=== PATIENT | female | born 1970 | race Caucasian/White ===

== ENCOUNTER 2020-06-10 12:04 | Outpatient (REF) | payer BC, SELFPAY ==
[2020-06-10 12:48] LABS: COVID-19 Test Negative (Negative)
== END 2020-06-10 12:05 | disposition home or self-care (01) ==
LOC: HO.LAB 12:04
PROVIDERS: Visit Provider Internal Medicine
DX: Z20.828 Contact with and (suspected) exposure to other viral communicable diseases (principal)
CPT/HCPCS: 87635

== ENCOUNTER 2020-06-22 11:38 | Outpatient (REF) | payer BC, SELFPAY ==
[2020-06-22 12:00] LABS: COVID-19 Test Negative (Negative)
== END 2020-06-22 11:39 | disposition home or self-care (01) ==
LOC: HO.LAB 11:38
PROVIDERS: Visit Provider Internal Medicine
DX: Z20.828 Contact with and (suspected) exposure to other viral communicable diseases (principal)
CPT/HCPCS: 87635

== ENCOUNTER 2020-07-06 12:46 | Outpatient (REF) | payer OTHER, SELFPAY ==
[2020-07-06 13:32] LABS: COVID-19 Test Negative (Negative); IDNOW Serial# 55D5AD1C
== END 2020-07-06 12:47 | disposition home or self-care (01) ==
LOC: HO.EMPCOV 12:46
PROVIDERS: PCP Internal Medicine; Visit Provider Internal Medicine
DX: Z20.828 Contact with and (suspected) exposure to other viral communicable diseases (principal)
CPT/HCPCS: 87635; C9803

== ENCOUNTER 2020-08-03 08:19 | Outpatient (REF) | payer OTHER, SELFPAY ==
[2020-08-03 08:51] LABS: COVID-19 Test Negative (Negative)
== END 2020-08-03 08:20 | disposition home or self-care (01) ==
LOC: HO.EMPCOV 08:19
PROVIDERS: PCP Internal Medicine; Visit Provider Internal Medicine
DX: Z20.828 Contact with and (suspected) exposure to other viral communicable diseases (principal)
CPT/HCPCS: 87635; C9803

== ENCOUNTER 2020-08-26 11:39 | Outpatient (REF) | payer BC, SELFPAY ==
[2020-08-26 12:01] LABS: MANUAL DIFF FLAG NO
[2020-08-26 12:16] LABS: Basophils Percent Auto 0.6 % (0-2); Eosinophils Absolute Auto 0.1 X10*3/uL (0.0-0.4); Eosinophils Percent Auto 1.8 % (0-4); Hematocrit 42.8 % (37-47); Hemoglobin 14.2 g/dl (12.0-16.0); Imm Gran Abs Auto 0.01 X10*3/uL (0.00-0.03); Imm Gran Pct Auto 0.1 % (0.0-0.4); Lymphocytes Absolute Auto 1.9 X10*3/uL (1.2-4.9); Lymphocytes Percent Auto 27.7 % (20-40); Mean Corpuscular HGB Conc 33.2 g/dl (31.0-35.0); Mean Corpuscular Hemoglobin 29.9 pg (27.0-33.0); Mean Corpuscular Volume 90.1 fL (80-98); Mean Platelet Volume 11.3 fL (9.4-12.3); Monocytes Absolute Auto 0.6 X10*3/uL (0.1-1.2); Monocytes Percent Auto 9.2 % (2-11); Neutrophils Absolute Auto 4.1 X10*3/uL (2.0-8.3); Neutrophils Percent Auto 60.6 % (45-73); Platelet Count 266 X10*3/uL (160-400); Red Blood Count 4.75 X10*6/uL (4.20-5.50); Red Cell Distribution Width 12.2 % (11.0-16.0); White Blood Count 6.7 X10*3/uL (4.8-10.8)
== END 2020-08-26 11:40 | disposition home or self-care (01) ==
LOC: HO.LAB 11:39
PROVIDERS: PCP Internal Medicine; Visit Provider Physician Assistant Medical
DX: R06.02 Shortness of breath (principal); R11.0 Nausea; R42 Dizziness and giddiness; R43.0 Anosmia; R53.83 Other fatigue
CPT/HCPCS: 36415; 85025

== ENCOUNTER → 2020-09-08 13:45 | Outpatient (REF) | payer BC, SELFPAY ==
--- NOTE | 2020-09-08 14:00 | CA_ITS ---
Transthoracic Echocardiogram Patient (Last, First, Middle): Maddison Jiménez, Gender: Female Date of : 1970 Age: 50 Procedure Date: 09/08/2020 Procedure Type: Transthoracic Echocardiogram Location: OP Height: 160.02 cm Weight: 63.5 kg BSA: 1.66 m2 Heart Rate: bpm BP: 120 / 80 mmHg Internet Marketing Analyst: MACIE Referring MD: Charles Barragan MD Symptoms: R00.2 PALPITATIONS SOB R06.02 Study Quality: Good ECG Rhythm: Sinus Conclusions: - The left ventricular systolic function is normal. The visually estimated ejection fraction is between 60-65%. - No obvious valvular pathology seen on this study. Findings Left Ventricle Normal left ventricular cavity size. There is normal left ventricular wall thickness. The left ventricular systolic function is normal. The visually estimated ejection fraction is between 60-65%. There is no evidence of regional wall motion abnormalities. Diastolic function is normal for age. Right Ventricle Normal right ventricular cavity size and systolic function. Atria Both atria are normal in size. Aortic Valve The aortic valve was not well visualized. There is a normal trileaflet aortic valve. There is no aortic valve stenosis. There is no aortic valve regurgitation. Mitral Valve The mitral valve appears normal. There is trace mitral valve regurgitation. There is no mitral valve stenosis. Pulmonic Valve The pulmonic valve was not well visualized. Tricuspid Valve Normal tricuspid valve structure. There is trace tricuspid valve regurgitation. The pulmonary artery systolic pressure is normal. Great Vessels The aortic annulus, sinuses of valsalva, and asc aorta are normal in size. Venous The inferior vena cava is normal in size and collapses greater than 50% with inspiration. Pericardium/Pleural There is no evidence of pericardial effusion. Prior Study Comparison No prior study available for comparison. Recommendations, Care & Conclusions No obvious valvular pathology seen on this study. Measurements 2D Linear Measurements IVSd: 0.93 0.6-0.9/0.6-1.0 cm LVIDd: 4.00 3.9-5.3/4.2-5.9 cm LVIDd Index: 2.41 2.4-3.2/2.2-3.1 cm/m2 LVIDs: 2.75 2.0-3.6 cm LVPWd: 0.92 0.7-1.1 cm Ao Root: 2.50 2.1-3.5 cm LA Diam: 2.60 2.7-3.8/3.0-4.0 cm LAIDs Index: 1.57 1.5-2.3 cm/m2 LV Mass: 142.08 67-162/88-224 g LV Mass Index: 85.59 43-95/49-115 g/m2 LVOT Diam: 1.90 3.0+(-)1.3 cm 2D Systolic Function EF 4C: 56.90 >55% EF 2C: 58.10 >55% EF BiP: 57.60 >55% Mitral Valve MV Pk E: 0.70 MV PK A: 0.76 MV Decel Time: 169.00 E/A: 0.90 E'Lateral: 10.90 E'Medial: 8.51 E/E' Med: 8.20 E/E' Lat: 6.40 PHT: 50.00 MVA PHT: 4.40 Decel Harding: 4.13 Aortic Valve AoV Pk Pasha: 1.25 AoV Pk Grad: 6.00 LVOT LVOT Pk Pasha: 1.01 LVOT Mn Pasha: 0.66 LVOT VTI: 0.19 LVOT Pk Grad: 4.00 LVOT Mn Grad: 2.00 LVOT Diam: 1.90 LVOT Area: 2.84 Diastolic Function MV Pk E: 0.70 MV Pk A: 0.76 E/A: 0.90 E'Medial: 8.51 E/E' Med: 8.20 E' Laterial: 10.90 E/E' Lat: 6.40 Tricuspid Valve TR Pk Pasha: 1.83 TR Pk Grad: 13.00 RA Press: 3.00 RVSP: 16.00 Great Vessels Aorta Ao Root-2D: 2.50 2.0-3.7 cm Ao Asc: 2.50 2.1-3.4 cm Updated in Other Vendor System with Status of Final Stephen Navarro MD electronically signed on 09/11/2020 12:28:51 PM with status of Final
== END ==
LOC: HO.CARD 13:45
PROVIDERS: Visit Provider Internal Medicine
DX: R00.2 Palpitations (principal); R06.02 Shortness of breath
CPT/HCPCS: 93306

== ENCOUNTER 2020-09-20 07:18 | Outpatient (REF) | payer BC, SELFPAY ==
--- NOTE | 2020-09-20 07:21 | CT_ITS ---
EXAMINATION: CT SINUS WITHOUT CONTRAST CLINICAL INFORMATION: Sinonasal polyps COMPARISON: None TECHNIQUE: Axial 2 mm thin and reformatted 2 mm thin sagittal and coronal images of sinuses were obtained. This CT examination was performed using dose optimization techniques as appropriate, variously including the following: *Automated exposure control *Adjustment of mA and/or kV according to patient size (this includes techniques or standardized protocols for targeted exams where dose is matched to indication/reason for exam; i.e. extremities or head) *Use of iterative reconstruction technique DLP: 86 mGy-cm FINDINGS: FRONTAL SINUSES AND DRAINAGE PATHWAYS: Normal. MAXILLARY SINUSES AND DRAINAGE PATHWAYS: Normal. The infundibula are patent. ETHMOID SINUSES: Normal. The ethmoid roofs are symmetric, with olfactory fossa depth of 0.6 cm on the right and 0.5 on the left. SPHENOID SINUSES AND DRAINAGE PATHWAYS: Normal. The sphenoid ostia are patent. The carotid canals are covered by bone. NASAL CAVITY/NASOPHARYNX: The nasal cavity is clear. There is moderate right nasal septal deviation/spurring. The nasopharynx is symmetric. ADDITIONAL RELEVANT FINDINGS: No periapical disease is seen. The TMJs articulate normally. The orbits and skull base soft tissues are unremarkable. The middle ear cavities and mastoid air cells are clear. Limited evaluation demonstrates no acute intracranial findings. CT/CT sinus wo con IMPRESSION: There is moderate deviation of nasal septum to the right with a bony nasal spur. No polyps are seen. The sinuses are clear with normal drainage pathways. No polyps or mass seen.
== END 2020-09-20 07:19 | disposition home or self-care (01) ==
LOC: HO.CT 07:18
PROVIDERS: Visit Provider Otolaryngology
DX: J33.0 Polyp of nasal cavity (principal); R43.0 Anosmia
CPT/HCPCS: 70486

== ENCOUNTER 2020-10-08 14:23 | Outpatient (REF) | payer BC, SELFPAY ==
--- NOTE | ~2020-10-08 | XR_ITS ---
EXAMINATION: XR CHEST CLINICAL INFORMATION: Shortness of breath COMPARISON: 12/05/2019 TECHNIQUE: 2 views of the chest were obtained. FINDINGS: Lungs are clear. No focal consolidation or mass. Normal pulmonary vascularity. No pleural effusion or pneumothorax. Normal heart size. No acute osseous abnormality. XR/XR chest 2V IMPRESSION: No acute pulmonary disease.
[2020-10-08 15:45] LABS: D Dimer 258 NG/ML
[2020-10-08 16:04] LABS: B Type Natriuretic Peptide 11 pg/mL (<100)
[2020-10-08 16:05] LABS: Alanine Aminotransferase 71 U/L (0-31); Albumin Level 4.3 g/dL (3.5-5.0); Alkaline Phosphatase 75 U/L (39-117); Aspartate Amino Transferase 51 U/L (5-31); Bilirubin Total 0.4 mg/dL (0.0-1.0); Blood Urea Nitrogen 18 mg/dL (9-16); C Reactive Protein 0.13 mg/dL (< or = 0.50); Calcium 8.9 mg/dL (8.4-10.2); Estimated Glomerular Filt Rate > 60; Glucose Random 98 mg/dL (60-115); Rheumatoid Factor < 15.0 IU/mL (<15.0); Total Protein 6.6 g/dL (6.5-8.0)
[2020-10-08 16:18] LABS: Anion Gap 14 (12-20); Carbon Dioxide 27 mmol/L (22-29); Chloride 102 mmol/L (96-108); Potassium 4.1 mmol/L (3.3-5.1); Sodium 139 mmol/L (135-145)
[2020-10-08 16:23] LABS: Free T4 (Free Thyroxine) 0.92 ng/dL (0.71-1.85); Thyroid Stimulating Hormone 0.63 uIU/mL (0.32-4.0)
[2020-10-08 16:26] LABS: Vitamin B12 561 pg/mL (200-900)
[2020-10-08 16:28] LABS: Erythrocyte Sedimentation Rate 7 MM/HR (0-20)
[2020-10-09 08:16] LABS: Lyme Abs Screen <0.90 index
[2020-10-11 09:26] LABS: Anti Nuclear Antibody Screen NEGATIVE (NEGATIVE)
== END 2020-10-08 14:24 | disposition home or self-care (01) ==
LOC: HO.LAB 14:23
PROVIDERS: PCP Internal Medicine; Visit Provider Physician Assistant Medical
DX: R06.02 Shortness of breath (principal); R11.0 Nausea; R42 Dizziness and giddiness; R43.0 Anosmia; R43.9 Unspecified disturbances of smell and taste; R51.9 Headache, unspecified; R53.83 Other fatigue
CPT/HCPCS: 36415; 71046; 80053; 82607; 83880; 84439; 84443; 85379; 85652; 86038; 86039; 86140; 86431; 86618

== ENCOUNTER 2020-10-18 13:28 | Outpatient (REF) | payer BC, SELFPAY ==
--- NOTE | ~2020-10-18 | MR_ITS ---
EXAMINATION: MR BRAIN WITHOUT CONTRAST CLINICAL INFORMATION: Chronic daily headaches right-sided. COMPARISON: None TECHNIQUE: Multi projectional and multi sequential images of brain were obtained. FINDINGS: There is no restricted diffusion to suspect any acute ischemia. On gradient-echo sequences, there is no flow void signal abnormality to suspect new or old hemorrhagic products. There are 2 punctate signal abnormalities in the deep white matter of right frontal lobe on axial image 13/6 without any significant edema or mass effect. These are nonspecific. No additional abnormality seen. No intra-axial or extra-axial bleed seen. The lateral ventricles are symmetrical in size and configuration without enlargement. The cervical-medullary junction is unremarkable. Normal flow void signal seen in the major cerebral vasculature. There is a punctate T2 signal abnormality in left anterior ethmoid sinus likely focal inflammatory process. Rest of the paranasal sinuses and left mastoid air cells are well-aerated. There is T2 signal abnormality right mastoid sinus. MR/MR head/brain wo con IMPRESSION: No acute intracranial process seen. Two punctate T2 hyperintense foci in deep white matter of right frontal lobe without edema or mass effect, nonspecific. Suspect chronic right mastoid sinus inflammatory changes and focal inflammatory process left anterior ethmoid cell.
== END 2020-10-18 13:29 | disposition home or self-care (01) ==
LOC: HO.MRI 13:28
PROVIDERS: Visit Provider Internal Medicine
DX: G44.52 New daily persistent headache (NDPH) (principal); H53.71 Glare sensitivity; H93.299 Other abnormal auditory perceptions, unspecified ear
CPT/HCPCS: 70551

== ENCOUNTER → 2020-12-09 10:45 | Outpatient (REF) | payer BC, SELFPAY ==
--- NOTE | 2020-12-09 11:00 | CA_ITS ---
Acquisition Time: 2020-12-09 11:13:33 Total Exercise Time: 00:06:36 Test Indications: SOB, CP Medications: SEE CHART Protocol: MAHESH Max HR: 162 BPM 95% of Pred: 169 BPM Max BP: 150/080 mmHG Max Work Load: 7.9 METS Exercise stress test using Mahesh protocol, total of 6 min 36 sec. METS 7.90 and TAPHR up to 95%. Pt tolerated well, c/o chest pressure/thightness with inspiration 6/10 that resolves in recovery. EKG with occasional PVC's, no ischemic changes seen during exercise or in recovery. ECHO images taken at rest and immediately after peak exercise HR achieved. Definity contrast used. Normotensive response to exercise. Test reviewed with Dr. Alvares. Exercise stress echocardiogram was reviewed. At rest, there is normal LVEF and wall motion. With peak exercise, the basal inferior wall is not well visualized but other areas appear to augment normally. There is normal decrease in end-systolic volume. Overall, apart from the above limitation in basal inferior wall, otherwise normal study. Referred By: Charles Barragan Overread By: HAILEE ALVARES
== END ==
LOC: HO.CARD 10:45
PROVIDERS: Visit Provider Internal Medicine
DX: R07.9 Chest pain, unspecified (principal)
CPT/HCPCS: 93350; Q9957

== ENCOUNTER 2021-04-12 14:07 | Outpatient (REF) | payer BC, SELFPAY ==
--- NOTE | ~2021-04-12 | XR_ITS ---
EXAMINATION: XR HAND, RIGHT CLINICAL INFORMATION: Right hand pain. COMPARISON: None TECHNIQUE: PA, lateral, and oblique views of the right hand. FINDINGS: The bones and soft tissues are normal. No fracture. Alignment is anatomic. Joint spaces are maintained. No erosions or soft tissue calcifications. XR/XR hand RT min 3V IMPRESSION: Unremarkable right hand.
--- NOTE | ~2021-04-12 | XR_ITS ---
EXAMINATION: XR HAND, LEFT CLINICAL INFORMATION: Left hand pain. COMPARISON: None TECHNIQUE: PA, lateral, and oblique views of the left hand. FINDINGS: The bones and soft tissues are normal. No fracture. Alignment is anatomic. Joint spaces are maintained. No erosions or soft tissue calcifications. XR/XR hand LT min 3V IMPRESSION: Unremarkable left hand.
--- NOTE | ~2021-04-12 | XR_ITS ---
EXAMINATION: XR FOOT, RIGHT CLINICAL INFORMATION: Right foot pain. COMPARISON: None TECHNIQUE: AP, lateral, and oblique views of the right foot. FINDINGS: The bones and soft tissues are normal. No fracture. Alignment is anatomic. Joint spaces are maintained. XR/XR foot RT 2V IMPRESSION: Normal right foot.
--- NOTE | ~2021-04-12 | XR_ITS ---
EXAMINATION: XR FOOT, LEFT CLINICAL INFORMATION: Left foot pain. COMPARISON: None TECHNIQUE: AP, lateral, and oblique views of the left foot. FINDINGS: There is no acute fracture or dislocation. The tarsal bones are normally aligned. There is a small retrocalcaneal spur. The soft tissues are unremarkable. XR/XR foot LT 2V IMPRESSION: Small retrocalcaneal spur without other significant abnormality.
[2021-04-12 15:22] LABS: MANUAL DIFF FLAG NO
[2021-04-12 15:30] LABS: Basophils Percent Auto 0.7 % (0-2); Eosinophils Absolute Auto 0.2 X10*3/uL (0.0-0.4); Eosinophils Percent Auto 2.5 % (0-4); Hematocrit 42.3 % (37-47); Hemoglobin 13.9 g/dl (12.0-16.0); Imm Gran Abs Auto 0.01 X10*3/uL (0.00-0.03); Imm Gran Pct Auto 0.2 % (0.0-0.4); Lymphocytes Percent Auto 33.6 % (20-40); Mean Corpuscular HGB Conc 32.9 g/dl (31.0-35.0); Mean Corpuscular Hemoglobin 29.8 pg (27.0-33.0); Mean Corpuscular Volume 90.6 fL (80-98); Mean Platelet Volume 10.9 fL (9.4-12.3); Monocytes Absolute Auto 0.5 X10*3/uL (0.1-1.2); Monocytes Percent Auto 8.7 % (2-11); Neutrophils Absolute Auto 3.3 X10*3/uL (2.0-8.3); Neutrophils Percent Auto 54.3 % (45-73); Platelet Count 307 X10*3/uL (160-400); Red Blood Count 4.67 X10*6/uL (4.20-5.50); Red Cell Distribution Width 12.4 % (11.0-16.0); White Blood Count 6.1 X10*3/uL (4.8-10.8)
[2021-04-12 15:50] LABS: Alanine Aminotransferase 31 U/L (0-31); Albumin Level 4.8 g/dL (3.5-5.0); Alkaline Phosphatase 78 U/L (39-117); Anion Gap 15 (12-20); Aspartate Amino Transferase 27 U/L (5-31); Bilirubin Total 0.6 mg/dL (0.0-1.0); Blood Urea Nitrogen 14 mg/dL (9-16); C Reactive Protein 0.19 mg/dL (< or = 0.50); Carbon Dioxide 30 mmol/L (22-29); Chloride 101 mmol/L (96-108); Estimated Glomerular Filt Rate > 60; Glucose Random 88 mg/dL (60-115); Potassium 4.7 mmol/L (3.3-5.1); Rheumatoid Factor < 15.0 IU/mL (<15.0); Sodium 141 mmol/L (135-145); Total Protein 7.6 g/dL (6.5-8.0)
[2021-04-12 16:18] LABS: Erythrocyte Sedimentation Rate 7 MM/HR (0-20)
[2021-04-13 21:16] LABS: Lyme Abs Screen <0.90 index
[2021-04-14 15:57] LABS: Cyclic Citrullinated Peptide <16 UNITS
== END 2021-04-12 14:08 | disposition home or self-care (01) ==
LOC: HO.XRAY 14:07
PROVIDERS: PCP Internal Medicine; Visit Provider Student in an Organized Health Care Education/Training Program
DX: M79.642 Pain in left hand (principal); M79.641 Pain in right hand; M79.672 Pain in left foot; M79.671 Pain in right foot; M25.562 Pain in left knee; M25.561 Pain in right knee
CPT/HCPCS: 36415; 73130; 73620; 80053; 85025; 85652; 86140; 86200; 86431; 86617; 86618

== ENCOUNTER → 2021-04-27 09:12 | Outpatient (BNVA) | payer BC, SELFPAY | PROVIDERS: PCP Internal Medicine; Visit Provider Student in an Organized Health Care Education/Training Program ==

== ENCOUNTER 2021-04-29 06:36 | Outpatient (REF) | payer BC, SELFPAY ==
--- NOTE | ~2021-04-29 | XR_ITS ---
EXAMINATION: XR KNEE, RIGHT CLINICAL INFORMATION: Pain in right knee COMPARISON: None TECHNIQUE: Three views of the right knee. FINDINGS: No fracture. No dislocation. No joint effusion. Normal mineralization. Joint spaces are maintained. XR/XR knee RT 3V IMPRESSION: No acute osseous abnormality of the right knee.
== END 2021-04-29 06:37 | disposition home or self-care (01) ==
LOC: HO.XRAY 06:36
PROVIDERS: PCP Internal Medicine; Visit Provider Physician Assistant Medical
DX: M25.561 Pain in right knee (principal)
CPT/HCPCS: 73562

== ENCOUNTER 2021-05-11 09:46 | Outpatient (REF) | payer BC, SELFPAY ==
[2021-05-14 03:56] LABS: HPV mRNA E6/E7 rflx Not Detected (Not Detected)
== END 2021-05-11 09:47 | disposition home or self-care (01) ==
LOC: HO.LAB 09:46
PROVIDERS: PCP Internal Medicine; Visit Provider Advanced Practice Midwife
DX: Z01.419 Encounter for gynecological examination (general) (routine) without abnormal findings (principal); Z11.51 Encounter for screening for human papillomavirus (HPV); N95.1 Menopausal and female climacteric states
CPT/HCPCS: 87624; 88142

== ENCOUNTER 2021-06-25 10:16 | Outpatient (REF) | payer BC, SELFPAY ==
[2021-06-25 10:45] LABS: COVID-19 Test Negative (Negative); IDNOW Serial# 9DD0AD1C
== END 2021-06-25 10:17 | disposition home or self-care (01) ==
LOC: HO.LAB 10:16
PROVIDERS: PCP Internal Medicine; Visit Provider Internal Medicine
DX: Z20.822 Contact with and (suspected) exposure to COVID-19 (principal)
CPT/HCPCS: 36415; 87635

== ENCOUNTER 2021-07-06 09:38 | Outpatient (REF) | payer BC, SELFPAY ==
--- NOTE | ~2021-07-06 | MM_ITS ---
EXAMINATION: MM SCREENING DIGITAL BREAST TOMOSYNTHESIS, BILATERAL CLINICAL INFORMATION: Screening. Asymptomatic. No prior breast imaging. Age 51. No known family history breast cancer. The lifetime risk of breast cancer based on the Tyrer-Cuzick Model is 8%. COMPARISON: None (current study represents initial baseline exam). TECHNIQUE: Digital breast tomosynthesis is performed in both the craniocaudal and mediolateral oblique views along with computer-aided detection (CAD). Synthesized 2D images are generated from the tomosynthesis. FINDINGS: There are scattered areas of fibroglandular density (ACR BI-RADS breast composition Category b). There are no significant masses, abnormal calcifications, or other abnormalities. The axilla and skin contours are unremarkable. MM/MM tomosynthesis screening BI IMPRESSION: No mammographic evidence of malignancy. ASSESSMENT: BI-RADS 1: Negative RECOMMENDATION: Routine annual mammography screening. This patient's information was entered into a reminder system with a target due date for their next mammogram.
== END 2021-07-06 09:39 | disposition home or self-care (01) ==
LOC: HO.MAMMO 09:38
PROVIDERS: PCP Internal Medicine; Visit Provider Advanced Practice Midwife
DX: Z12.31 Encounter for screening mammogram for malignant neoplasm of breast (principal)
CPT/HCPCS: 77063; 77067

== ENCOUNTER 2022-01-27 15:24 | Outpatient (REF) | payer BC, SELFPAY ==
--- NOTE | ~2022-01-27 | XR_ITS ---
EXAMINATION: XR KNEE, RIGHT CLINICAL INFORMATION: Pain. COMPARISON: None TECHNIQUE: Four views of the right knee. FINDINGS: Bones and soft tissues are normal. No fracture or joint effusion. Alignment is anatomic. Joint spaces are well maintained. No abnormal soft tissue calcification. XR/XR knee RT 4V IMPRESSION: Unremarkable right knee.
== END 2022-01-27 15:25 | disposition home or self-care (01) ==
LOC: HO.XRAY 15:24
PROVIDERS: PCP Physician Assistant Medical; Visit Provider Physician Assistant Medical
DX: M25.561 Pain in right knee (principal)
CPT/HCPCS: 73564

== ENCOUNTER 2022-06-20 15:31 | Outpatient (REF) | payer BC, SELFPAY ==
--- NOTE | ~2022-06-20 | US_ITS ---
EXAMINATION: ULTRASOUND EXTREMITY NONVASCULAR LIMITED CLINICAL INFORMATION: Pain and swelling post arterial catheterization left arm COMPARISON: None TECHNIQUE: Grayscale and color imaging of the soft tissues of the left forearm and radial artery and vein FINDINGS: No abnormal fluid collection or soft tissue to suggest hematoma is seen. The radial artery is normal in caliber and patent. No pseudoaneurysm or AV fistula is seen. The cephalic vein in the forearm is patent. US/US extremity nonvascular oliva IMPRESSION: Unremarkable exam.
== END 2022-06-20 15:32 | disposition home or self-care (01) ==
LOC: HO.US 15:31
PROVIDERS: Visit Provider Emergency Medicine
DX: R60.0 Localized edema (principal); M79.632 Pain in left forearm; Z98.890 Other specified postprocedural states
CPT/HCPCS: 76882

== ENCOUNTER 2022-08-06 09:44 | Outpatient (REF) | payer BC, SELFPAY ==
[2022-08-06 10:31] LABS: Influenza A PCR NEGATIVE (Negative); Influenza B PCR NEGATIVE (Negative); Resp Syncy Virus RNA Qual PCR NEGATIVE (Negative); SARS COV2 PCR INHOUSE NEGATIVE (Negative)
== END 2022-08-06 09:45 | disposition home or self-care (01) ==
LOC: HO.LAB 09:44
PROVIDERS: Visit Provider Internal Medicine
DX: Z20.822 Contact with and (suspected) exposure to COVID-19 (principal)
CPT/HCPCS: 0241U

== ENCOUNTER → 2022-10-05 08:15 | Outpatient (BNVA) | payer BC, SELFPAY | PROVIDERS: PCP Physician Assistant Medical; Visit Provider Advanced Practice Midwife | DX: Z13.89 Encounter for screening for other disorder (principal) ==

== ENCOUNTER 2024-03-31 16:06 | Outpatient (REF) | payer BC, SELFPAY ==
[2024-04-01 17:39] LABS: Lyme Abs Screen <0.90 index
== END 2024-03-31 16:07 | disposition home or self-care (01) ==
LOC: HO.LAB 16:06
PROVIDERS: PCP Internal Medicine; Visit Provider Hospitalist
DX: T14.8XXA Other injury of unspecified body region, initial encounter (principal); W57.XXXA Bitten or stung by nonvenomous insect and other nonvenomous arthropods, initial encounter
CPT/HCPCS: 36415; 86617; 86618

== ENCOUNTER 2024-08-15 15:27 | Outpatient (REF) | payer BC, SELFPAY ==
--- NOTE | ~2024-08-15 | XR_ITS ---
CLINICAL HISTORY: K59.00 - Constipation, unspecified Single view of the abdomen. COMPARISON: None FINDINGS: Normal bowel distention. No abnormal calcifications. No pneumoperitoneum identified. Ytfkxcgc-gf-rtqum colonic stool burden. No fracture identified. Mild spondylosis. Cholecystectomy clips. IMPRESSION: 1. Nonspecific nonobstructive bowel gas pattern. 2. Elnbzivb-qx-unoay colonic stool burden. This document has been electronically signed by: Freddy Clarke MD on 08/18/2024 14:52:40
--- OUTSIDE RECORDS SUMMARY | 2024-08-15 15:29 | XMS_ITS ---
Author Organization [facility] Address [address] [place] [address] Care Team Providers Care Net Developer Programmer Name Role Phone HARRISON GUERIN Unavailable [phone] MISSY LEONE Unavailable [phone] REASON FOR VISIT pt is here for tirzepatide 2.5mg..pt signed consent and left the office in stable condition MEDICATIONS Medication SIG (Take, Route, Frequency, Duration) Notes Start Date End Date Status Tirzepatide 2.5mg Active Ondansetron HCl 4 MG 1 tablet Orally Onc e a day for 30 days as needed 07/07/2023 Not-Taking Encounters Encounter Location Date Provider Diagnosis [facility] [address] [place] [address] 05/27/2024 MISSY LEONE PLAN OF TREATMENT Next Appt Details Provider Name:MIKE KEY, Main 09/29/2024 11:00:00 AM, [address] [place], [address], MEDICATIONS ADMINISTERED Medication Instructions Date of Administration Dosage Notes Tirzepatide 05/27/2024 2.5 mg Progress Notes * Mary SILVERIOOB:1970 (54 yo F)Acc No.[id number]:05/27/2024 Patient:??Maddison SILVERIO Provider:??Missy Leone MD :1970?Age:54 Y?Sex:Fe male Date:05/27/2024 Address:[address] [place] [address] Subjective: * Chief Complaints: * ?1. Pt is here for tirz epatide 2.5mg..pt signed consent and left the office in stable condition. * Medical History:?? * Medications:??Taking Tirzepa tide , Notes to Pharmacist: 2.5mg, Not-Taking Ondansetron HCl 4 MG Tablet 1 tablet Orally Once a day , Notes to Pharmacist: as needed Objective: Assessment: Plan: * Treatment: * Therapeutic Injections:? Tirzepatide : 2.5 mg (Route: Subcutaneous) given by Curt Rice on subcutaneus * Images: Billing Information: * Visit Code:?? * Procedure Codes:?? * Sign off status: Pending * Provider:??Missy Leone MD Date:??05/27
--- OUTSIDE RECORDS SUMMARY | 2024-08-15 15:29 | XMS_ITS ---
Author Organization [facility] Address [address] [place] [address] Care Team Providers Care Hand Bootmaker Name Role Phone HARRISON GUERIN Unavailable [phone] MISSY LEONE Unavailable [phone] REASON FOR VISIT pt is here for tirzepatide 2.5mg...pt signed consent and left the office in stable condition MEDICATIONS Medication SIG (Take, Route, Frequency, Duration) Notes Start Date End Date Status Ondansetron HCl 4 MG 1 tablet Orally Onc e a day for 30 days as needed 07/07/2023 Not-Taking Tirzepatide 2.5mg Active Encounters Encounter Location Date Provider Diagnosis [facility] [address] [place] [address] 06/17/2024 MISSY LEONE PLAN OF TREATMENT Next Appt Details Provider Name:MIKE KEY, Main 09/29/2024 11:00:00 AM, [address] [facility], [place], [address], MEDICATIONS ADMINISTERED Medication Instructions Date of Administration Dosage Notes Tirzepatide 06/17/2024 2.5 mg Progress Notes * Mary SILVERIOOB:1970 (54 yo F)Acc No.[id number]:06/17/2024 Patient:??Maddison SILVERIO Provider:??Missy Leone MD :1970?Age:54 Y?Sex:Fe male Date:06/17/2024 Address:[address] [place] [address] Subjective: * Chief Complaints: * ?1. Pt is here for tirz epatide 2.5mg...pt signed consent and left the office in [...] off status: Pending * Provider:??Missy Leone MD Date:??06/17
--- OUTSIDE RECORDS SUMMARY | 2024-08-15 15:29 | XMS_ITS | Patient Health Record ---
Author Organization [facility] Address [address] [place] [address] Care Team Providers Care [facility] Department Supervisor Name Role Phone ROBERTO KEERTHIHARRISON Unavailable [phone] EMILY JORGE Unavailable [phone] DON LEONE Unavailable [phone] RAAD CHARLEY Unavailable [phone] MIKE KEY Unavailable [phone] ALLERGIES No Known Allergies REASON FOR REFERRAL No Information MEDICATIONS Medication SIG (Take, Route, Frequency, Duration) Notes Start Date End Date Status Ondansetron HCl 4 MG 1 tablet Orally Onc e a day for 30 days as needed 07/07/2023 Not-Taking PROBLEMS Problem Type ICD Code Onset Dates Problem Status W/U Status Risk SNOMED Code Notes Problem Obesity (BMI 30-39.9) (E66.9) Active confirmed Obesity (603728023) Problem BMI 27.0-27.9,adul t (Z68.27) Active confirmed BMI 25-29 - overweight (396255699) Problem BMI 26.0-26.9,adul t (Z68.26) Active confirmed Body mass index 25-29 - overweight (473639793) Problem Hypertension, essential (I10) Active confirmed Essential hypertension (80265539) VITAL SIGNS Heart Rate 75 /min 06/23/2024 Oximetry 99 % 06/23/2024 Blood pressure diastolic 82 mm Hg 06/23/2024 Height 63 in 06/23/2024 Blood pressure systolic 122 mm Hg 06/23/2024 Weight 115.2 lbs 06/23/2024 BMI 20.4 kg/m2 06/23/2024 Encounters Encounter Location Date Provider Diagnosis [facility] [address] [place] [address] 08/15/[address] [facility] [address] [place] [address] 08/21/[address] [facility] [address] [place] [address] 08/28/[address] [facility] [address] [place] [address] 09/03/[address] [facility] [address] [place] [address] 09/13/[address] [facility] [address] [place] [address] 09/19/[address] [facility] [address] [place] [address] 09/27/[address] [facility] [address] [place] [address] 10/03/[address] [facility] [address] [place] [address] 10/09/[address] [facility] [address] [place] [address] 10/16/[address] [facility] [address] [place] [address] 10/24/[address] [facility] [address] [place] [address] 10/31/[address] [facility] [address] [place] [address] 11/19/[address] [facility] [address] [place] [address] 11/27/[address] [facility] [address] [place] [address] 12/05/[address] [facility] [address] [place] [address] 12/11/[address] [facility] [address] [place] [address] 12/26/[address] [facility] [address] [place] [address] 01/02/[address] [facility] [address] [place] [address] 01/09/[address] [facility] [address] [place] [address] 01/16/[address] [facility] [address] [place] [address] 01/23/[address] [facility] [address] [place] [address] 02/19/[address] [facility] [address] [place] [address] 03/04/[address] [facility] [address] [place] [address] 03/18/[address] [facility] [address] [place] [address] 04/01/[address] [facility] [address] [place] [address] 04/15/[address] [facility] [address] [place] [address] 05/06/[address] [facility] [address] [place] [address] 05/27/[address] [facility] [address] [place] [address] 06/17/[address] [facility] [address] [place] [address] 10/01/2023 MIKE SHAHID Hypertension, essential I10 and BMI 24.0-24.9, adult Z68.[address] [facility] [address] [place] [address] 11/12/2023 MIKE SHAHID BMI 24.0-24.9, adult Z68.24 and Hypertension, essential I10 [facility] [address] [place] [address] 12/17/2023 MIKE SHAHID Hypertension, essential I10 and BMI 22.0-22.9, adult Z68.[address] [facility] [address] [place] [address] 02/04/2024 MIKE SHAHID Hypertension, essential I10 and BMI 22.0-22.9, adult Z68.22 [facility] [address] [facility] [place], [place] [address] 04/23/2024 MIKE SHAHID Hypertension, essential I10 and BMI 21.0-21.9, adult Z68.21 [facility] [address] [facility] [place] [address] 06/23/2024 MIKE SHAHID Hypertension, essential I10 and BMI 20.0-20.9, adult Z68.20 ASSESSMENTS Encounter Date Diagnosis Assessment Notes Treatment Notes Treatment Clinical Notes Section Notes 10/01/2023 BMI 24.0-24.9, adult (ICD-10 - Z68.24) 06/09/2023, 154.87 pound/27.4 BMI patient was welcomed to the practice. Did discuss weight loss options with her. Did review that due to the fact that she is not obese and classified as overweight she might have difficulty getting GLP-1 medications approved by her insurance. She is also not a candidate for phentermine based on her blood pressure and her resistance to taking medications. We will check fasting labs on her for prediabetes and A1c evaluation. Did discuss use of compounded semaglutide as well as Contrave for some effects on her blood pressure. Patient is interested in Contrave. Did discuss side effects of medication and that we can send this to the [facility]. Educated on use of cortisol manager ct and probiotics. Also discussed WINNIE injections. 07/07/23: 156.4 lbs, BMI: 27.7 We will discontinue Contrave. Will initiate 0.25 mg of semaglutide in office. Discussed side effects of constipation and nausea. We will send Zofran for prophylactic use. Educated on not being on this medication with history of pancreatitis and specific thyroid cancer. 07/17/2023, nurse visit for 0.25 mg of compounded semaglutide 07/28/2023, 0.25 mg of compounded semaglutide 08/04/2023, 0.25 mg of semaglutide 08/06/2023, 150.58lbs/26.7BMI Denies any side effects from the compounded semaglutide. Will plan to increase to 0.5 mg next week. 10/01/2023: Weight 137.2, BMI 24.3. Patient graduated an effort, officially within a normal weight of a BMI of 24. Patient is no longer noticing appetite suppression, would like to increase to Wegovy 1 mg. Will increase to Wegovy 1 mg but she is aware will not increase anymore based on patient's BMI. Goal is to eventually taper off of medication and trial lifestyle alone. #Hypertension, patient is following with her PCP as well as [facility] and [facility] in regards to this. She is not on any medications for her blood pressure and is resistant to being on medications in regards to this. I did educate her extensively on her blood pressure and risk that come across with this and that weight loss while beneficial, might not help her blood pressure entirely. Patient verbalized understanding. Time spent with patient 30 minutes or greater than 50% on patient case and care coordination Patient follow-up in 4 weeks, sooner as needed. All quetsions answered to patients satisfaction. Patient verbalized understanding of diagnosis and treatments explained. To call sooner prior to next visit it any questions/concerns arise. Case discussed with collaborating physician Jeronimo Leone who reviewed the assessment and plan. Chart, medications, labs, vital signs reviewed. Dictation was accomplished with the use of [employer] voice recognition software, prone to medical misidentifications and grammatical errors. This is unintentional and the practitioner does try to identify and correct these, but some could still be present. Please do not hesitate to contact practitioner for clarification. 10/01/2023 Hypertension, essential (ICD-10 - I10) 06/09/2023, 154.87 pound/27.4 BMI patient was welcomed to the practice. Did discuss weight loss options with her. Did review that due to the fact that she is not obese and classified as overweight she might have difficulty getting GLP-1 medications approved by her insurance. She is also not a candidate for phentermine based on her blood pressure and her resistance to taking medications. We will check fasting labs on her for prediabetes and A1c evaluation. Did discuss use of compounded semaglutide as well as Contrave for some effects on her blood pressure. Patient is interested in Contrave. Did discuss side effects of medication and that we can send this to the [facility]. Educated on use of cortisol manager ct and probiotics. Also discussed WINNIE injections. 07/07/23: 156.4 lbs, BMI: 27.7 We will discontinue Contrave. Will initiate 0.25 mg of semaglutide in office. Discussed side effects of constipation and nausea. We will send Zofran for prophylactic use. Educated on not being on this medication with history of pancreatitis and specific thyroid cancer. 07/17/2023, nurse visit for 0.25 mg of compounded semaglutide 07/28/2023, 0.25 mg of compounded semaglutide 08/04/2023, 0.25 mg of semaglutide 08/06/2023, 150.58lbs/26.7BMI Denies any side effects from the compounded semaglutide. Will plan to increase to 0.5 mg next week. 10/01/2023: Weight 137.2, BMI 24.3. Patient graduated an effort, officially within a normal weight of a BMI of 24. Patient is no longer noticing appetite suppression, would like to increase to Wegovy 1 mg. Will increase to Wegovy 1 mg but she is aware will not increase anymore based on patient's BMI. Goal is to eventually taper off of medication and trial lifestyle alone. #Hypertension, patient is following with her PCP as well as [facility] and [facility] in regards to this. She is not on any medications for her blood pressure and is resistant to being on medications in regards to this. I did educate her extensively on her blood pressure and risk that come across with this and that weight loss while beneficial, might not help her blood pressure entirely. Patient verbalized understanding. Time spent with patient 30 minutes or greater than 50% on patient case and care coordination Patient follow-up in 4 weeks, sooner as needed. All quetsions answered to patients satisfaction. Patient verbalized understanding of diagnosis and treatments explained. To call sooner prior to next visit it any questions/concerns arise. Case discussed with collaborating physician Jeronimo Leone who reviewed the assessment and plan. Chart, medications, labs, vital signs reviewed. Dictation was accomplished with the use of [employer] voice recognition software, prone to medical misidentifications and grammatical errors. This is unintentional and the practitioner does try to identify and correct these, but some could still be present. Please do not hesitate to contact practitioner for clarification. 11/12/2023 BMI 24.0-24.9, adult (ICD-10 - Z68.24) 06/09/2023, 154.87 pound/27.4 BMI patient was welcomed to the practice. Did discuss weight loss options with her. Did review that due to the fact that she is not obese and classified as overweight she might have difficulty getting GLP-1 medications approved by her insurance. She is also not a candidate for phentermine based on her blood pressure and her resistance to taking medications. We will check fasting labs on her for prediabetes and A1c evaluation. Did discuss use of compounded semaglutide as well as Contrave for some effects on her blood pressure. Patient is interested in Contrave. Did discuss side effects of medication and that we can send this to the [facility]. Educated on use of cortisol manager ct and probiotics. Also discussed WINNIE injections. 07/07/23: 156.4 lbs, BMI: 27.7 We will discontinue Contrave. Will initiate 0.25 mg of semaglutide in office. Discussed side effects of constipation and nausea. We will send Zofran for prophylactic use. Educated on not being on this medication with history of pancreatitis and specific thyroid cancer. 07/17/2023, nurse visit for 0.25 mg of compounded semaglutide 07/28/2023, 0.25 mg of compounded semaglutide 08/04/2023, 0.25 mg of semaglutide 08/06/2023, 150.58lbs/26.7BMI Denies any side effects from the compounded semaglutide. Will plan to increase to 0.5 mg next week. 10/01/2023: Weight 137.2, BMI 24.3. Patient graduated an effort, officially within a normal weight of a BMI of 24. Patient is no longer noticing appetite suppression, would like to increase to Wegovy 1 mg. Will increase to Wegovy 1 mg but she is aware will not increase anymore based on patient's BMI. Goal is to eventually taper off of medication and trial lifestyle alone. 11/12/2023: Weight 136.5, BMI 24.18. Patient is lost 1 pound since last visit. Did recently go on vacation. Taking semaglutide 1 mg, but she feels like she is at a plateau. Will switch over to just appetite 2.5 mg. Educated on proper use, and side effects. Educated on long-term use. #Hypertension, patient is following with her PCP as well as [facility] and [facility] in regards to this. She is not on any medications for her blood pressure and is resistant to being on medications in regards to this. I did educate her extensively on her blood pressure and risk that come across with this and that weight loss while beneficial, might not help her blood pressure entirely. Patient verbalized understanding. Time spent with patient 30 minutes or greater than 50% on patient case and care coordination Patient follow-up in 4 weeks, sooner as needed. All quetsions answered to patients satisfaction. Patient verbalized understanding of diagnosis and treatments explained. To call sooner prior to next visit it any questions/concerns arise. Case discussed with collaborating physician Jeronimo Leone who reviewed the assessment and plan. Chart, medications, labs, vital signs reviewed. Dictation was accomplished with the use of [employer] voice recognition software, prone to medical misidentifications and grammatical errors. This is unintentional and the practitioner does try to identify and correct these, but some could still be present. Please do not hesitate to contact practitioner for clarification. 12/17/2023 BMI 22.0-22.9, adult (ICD-10 - Z68.22) 06/09/2023, 154.87 pound/27.4 BMI patient was welcomed to the practice. Did discuss weight loss options with her. Did review that due to the fact that she is not obese and classified as overweight she might have difficulty getting GLP-1 medications approved by her insurance. She is also not a candidate for phentermine based on her blood pressure and her resistance to taking medications. We will check fasting labs on her for prediabetes and A1c evaluation. Did discuss use of compounded semaglutide as well as Contrave for some effects on her blood pressure. Patient is interested in Contrave. Did discuss side effects of medication and that we can send this to the [facility]. Educated on use of cortisol manager ct and probiotics. Also discussed WINNIE injections. 07/07/23: 156.4 lbs, BMI: 27.7 We will discontinue Contrave. Will initiate 0.25 mg of semaglutide in office. Discussed side effects of constipation and nausea. We will send Zofran for prophylactic use. Educated on not being on this medication with history of pancreatitis and specific thyroid cancer. 07/17/2023, nurse visit for 0.25 mg of compounded semaglutide 07/28/2023, 0.25 mg of compounded semaglutide 08/04/2023, 0.25 mg of semaglutide 08/06/2023, 150.58lbs/26.7BMI Denies any side effects from the compounded semaglutide. Will plan to increase to 0.5 mg next week. 10/01/2023: Weight 137.2, BMI 24.3. Patient graduated an effort, officially within a normal weight of a BMI of 24. Patient is no longer noticing appetite suppression, would like to increase to Wegovy 1 mg. Will increase to Wegovy 1 mg but she is aware will not increase anymore based on patient's BMI. Goal is to eventually taper off of medication and trial lifestyle alone. 11/12/2023: Weight 136.5, BMI 24.18. Patient is lost 1 pound since last visit. Did recently go on vacation. Taking semaglutide 1 mg, but she feels like she is at a plateau. Will switch over to just appetite 2.5 mg. Educated on proper use, and side effects. Educated on long-term use. 12/17/2023: Weight 127.4, BMI 22.57. Patient congratulated on effort, is now within normal limit for BMI. Was switched from semaglutide to tirzepatide. Taking 2.5 milligrams. Patient was interested in increasing to tirzepatide 5 mg, but I advised against this secondary to her weight, and muscle mass. Patient still feels like she has weight to lose, I expressed that she will feel better with gaining muscle, and how that should be her new focus. She understands. Will start increasing resistance training and protein. Continue tirzepatide 2.5 mg, no increase otherwise.Starting to have a discussion about proper taper #Hypertension, patient is following with her PCP as well as [facility] in regards to this. She is not on any medications for her blood pressure and is resistant to being on medications in regards to this. I did educate her extensively on her blood pressure and risk that come across with this and that weight loss while beneficial, might not help her blood pressure entirely. Patient verbalized understanding. Time spent with patient 30 minutes or greater than 50% on patient case and care coordination Patient follow-up in 4 weeks, sooner as needed. All quetsions answered to patients satisfaction. Patient verbalized understanding of diagnosis and treatments explained. To call sooner prior to next visit it any questions/concerns arise. Case discussed with collaborating physician Jeronimo Leone who reviewed the assessment and plan. Chart, medications, labs, vital signs reviewed. Dictation was accomplished with the use of [employer] voice recognition software, prone to medical misidentifications and grammatical errors. This is unintentional and the practitioner does try to identify and correct these, but some could still be present. Please do not hesitate to contact practitioner for clarification. 12/17/2023 Hypertension, essential (ICD-10 - I10) 06/09/2023, 154.87 pound/27.4 BMI patient was welcomed to the practice. Did discuss weight loss options with her. Did review that due to the fact that she is not obese and classified as overweight she might have difficulty getting GLP-1 medications approved by her insurance. She is also not a candidate for phentermine based on her blood pressure and her resistance to taking medications. We will check fasting labs on her for prediabetes and A1c evaluation. Did discuss use of compounded semaglutide as well as Contrave for some effects on her blood pressure. Patient is interested in Contrave. Did discuss side effects of medication and that we can send this to the [facility]. Educated on use of cortisol manager ct and probiotics. Also discussed WINNIE injections. 07/07/23: 156.4 lbs, BMI: 27.7 We will discontinue Contrave. Will initiate 0.25 mg of semaglutide in office. Discussed side effects of constipation and nausea. We will send Zofran for prophylactic use. Educated on not being on this medication with history of pancreatitis and specific thyroid cancer. 07/17/2023, nurse visit for 0.25 mg of compounded semaglutide 07/28/2023, 0.25 mg of compounded semaglutide 08/04/2023, 0.25 mg of semaglutide 08/06/2023, 150.58lbs/26.7BMI Denies any side effects from the compounded semaglutide. Will plan to increase to 0.5 mg next week. 10/01/2023: Weight 137.2, BMI 24.3. Patient graduated an effort, officially within a normal weight of a BMI of 24. Patient is no longer noticing appetite suppression, would like to increase to Wegovy 1 mg. Will increase to Wegovy 1 mg but she is aware will not increase anymore based on patient's BMI. Goal is to eventually taper off of medication and trial lifestyle alone. 11/12/2023: Weight 136.5, BMI 24.18. Patient is lost 1 pound since last visit. Did recently go on vacation. Taking semaglutide 1 mg, but she feels like she is at a plateau. Will switch over to just appetite 2.5 mg. Educated on proper use, and side effects. Educated on long-term use. 12/17/2023: Weight 127.4, BMI 22.57. Patient congratulated on effort, is now within normal limit for BMI. Was switched from semaglutide to tirzepatide. Taking 2.5 milligrams. Patient was interested in increasing to tirzepatide 5 mg, but I advised against this secondary to her weight, and muscle mass. Patient still feels like she has weight to lose, I expressed that she will feel better with gaining muscle, and how that should be her new focus. She understands. Will start increasing resistance training and protein. Continue tirzepatide 2.5 mg, no increase otherwise.Starting to have a discussion about proper taper #Hypertension, patient is following with her PCP as well as [facility] in regards to this. She is not on any medications for her blood pressure and is resistant to being on medications in regards to this. I did educate her extensively on her blood pressure and risk that come across with this and that weight loss while beneficial, might not help her blood pressure entirely. Patient verbalized understanding. Time spent with patient 30 minutes or greater than 50% on patient case and care coordination Patient follow-up in 4 weeks, sooner as needed. All quetsions answered to patients satisfaction. Patient verbalized understanding of diagnosis and treatments explained. To call sooner prior to next visit it any questions/concerns arise. Case discussed with collaborating physician Jeronimo Leone who reviewed the assessment and plan. Chart, medications, labs, vital signs reviewed. Dictation was accomplished with the use of [employer] voice recognition software, prone to medical misidentifications and grammatical errors. This is unintentional and the practitioner does try to identify and correct these, but some could still be present. Please do not hesitate to contact practitioner for clarification. 02/04/2024 Hypertension, essential (ICD-10 - I10) 06/09/2023, 154.87 pound/27.4 BMI patient was welcomed to the practice. Did discuss weight loss options with her. Did review that due to the fact that she is not obese and classified as overweight she might have difficulty getting GLP-1 medications approved by her insurance. She is also not a candidate for phentermine based on her blood pressure and her resistance to taking medications. We will check fasting labs on her for prediabetes and A1c evaluation. Did discuss use of compounded semaglutide as well as Contrave for some effects on her blood pressure. Patient is interested in Contrave. Did discuss side effects of medication and that we can send this to the [facility]. Educated on use of cortisol manager ct and probiotics. Also discussed WINNIE injections. 07/07/23: 156.4 lbs, BMI: 27.7 We will discontinue Contrave. Will initiate 0.25 mg of semaglutide in office. Discussed side effects of constipation and nausea. We will send Zofran for prophylactic use. Educated on not being on this medication with history of pancreatitis and specific thyroid cancer. 07/17/2023, nurse visit for 0.25 mg of compounded semaglutide 07/28/2023, 0.25 mg of compounded semaglutide 08/04/2023, 0.25 mg of semaglutide 08/06/2023, 150.58lbs/26.7BMI Denies any side effects from the compounded semaglutide. Will plan to increase to 0.5 mg next week. 10/01/2023: Weight 137.2, BMI 24.3. Patient graduated an effort, officially within a normal weight of a BMI of 24. Patient is no longer noticing appetite suppression, would like to increase to Wegovy 1 mg. Will increase to Wegovy 1 mg but she is aware will not increase anymore based on patient's BMI. Goal is to eventually taper off of medication and trial lifestyle alone. 11/12/2023: Weight 136.5, BMI 24.18. Patient is lost 1 pound since last visit. Did recently go on vacation. Taking semaglutide 1 mg, but she feels like she is at a plateau. Will switch over to just appetite 2.5 mg. Educated on proper use, and side effects. Educated on long-term use. 12/17/2023: Weight 127.4, BMI 22.57. Patient congratulated on effort, is now within normal limit for BMI. Was switched from semaglutide to tirzepatide. Taking 2.5 milligrams. Patient was interested in increasing to tirzepatide 5 mg, but I advised against this secondary to her weight, and muscle mass. Patient still feels like she has weight to lose, I expressed that she will feel better with gaining muscle, and how that should be her new focus. She understands. Will start increasing resistance training and protein. Continue tirzepatide 2.5 mg, no increase otherwise.Starting to have a discussion about proper taper 02/04/2024: Weight 126, BMI 22.32. Continuing tirzepatide 2.5 mg every other week. No indication for continuing to increase dose or go weekly at this time based on patient's BMI, this is helping her maintain did discuss that it may be hindering her success and ability to gain muscle but she would like to continue with medication at this time. Muscle mass 33 pounds. If patient continues to lose muscle we will discontinue GLP-1 altogether secondary to sarcopenia. Patient is going to continue to be consistent with resistance training, but try to increase the weights that she is lifting. Body scan reviewed today. Following up in 6 weeks for repeat body scan. Tirzepatide 2.5 every other week in the meantime #Hypertension, patient is following with her PCP as well as [facility] in regards to this. She is not on any medications for her blood pressure and is resistant to being on medications in regards to this. I did educate her extensively on her blood pressure and risk that come across with this and that weight loss while beneficial, might not help her blood pressure entirely. Patient verbalized understanding. Time spent with patient 30 minutes or greater than 50% on patient case and care coordination Patient follow-up in 4 to 6 weeks, sooner as needed. All quetsions answered to patients satisfaction. Patient verbalized understanding of diagnosis and treatments explained. To call sooner prior to next visit it any questions/concerns arise. Case discussed with collaborating physician Jeronimo Leone who reviewed the assessment and plan. Chart, medications, labs, vital signs reviewed. Dictation was accomplished with the use of [employer] voice recognition software, prone to medical misidentifications and grammatical errors. This is unintentional and the practitioner does try to identify and correct these, but some could still be present. Please do not hesitate to contact practitioner for clarification. 04/23/2024 BMI 21.0-21.9, adult (ICD-10 - Z68.21) 06/09/2023, 154.87 pound/27.4 BMI patient was welcomed to the practice. Did discuss weight loss options with her. Did review that due to the fact that she is not obese and classified as overweight she might have difficulty getting GLP-1 medications approved by her insurance. She is also not a candidate for phentermine based on her blood pressure and her resistance to taking medications. We will check fasting labs on her for prediabetes and A1c evaluation. Did discuss use of compounded semaglutide as well as Contrave for some effects on her blood pressure. Patient is interested in Contrave. Did discuss side effects of medication and that we can send this to the [facility]. Educated on use of cortisol manager ct and probiotics. Also discussed WINNIE injections. 07/07/23: 156.4 lbs, BMI: 27.7 We will discontinue Contrave. Will initiate 0.25 mg of semaglutide in office. Discussed side effects of constipation and nausea. We will send Zofran for prophylactic use. Educated on not being on this medication with history of pancreatitis and specific thyroid cancer. 07/17/2023, nurse visit for 0.25 mg of compounded semaglutide 07/28/2023, 0.25 mg of compounded semaglutide 08/04/2023, 0.25 mg of semaglutide 08/06/2023, 150.58lbs/26.7BMI Denies any side effects from the compounded semaglutide. Will plan to increase to 0.5 mg next week. 10/01/2023: Weight 137.2, BMI 24.3. Patient graduated an effort, officially within a normal weight of a BMI of 24. Patient is no longer noticing appetite suppression, would like to increase to Wegovy 1 mg. Will increase to Wegovy 1 mg but she is aware will not increase anymore based on patient's BMI. Goal is to eventually taper off of medication and trial lifestyle alone. 11/12/2023: Weight 136.5, BMI 24.18. Patient is lost 1 pound since last visit. Did recently go on vacation. Taking semaglutide 1 mg, but she feels like she is at a plateau. Will switch over to just appetite 2.5 mg. Educated on proper use, and side effects. Educated on long-term use. 12/17/2023: Weight 127.4, BMI 22.57. Patient congratulated on effort, is now within normal limit for BMI. Was switched from semaglutide to tirzepatide. Taking 2.5 milligrams. Patient was interested in increasing to tirzepatide 5 mg, but I advised against this secondary to her weight, and muscle mass. Patient still feels like she has weight to lose, I expressed that she will feel better with gaining muscle, and how that should be her new focus. She understands. Will start increasing resistance training and protein. Continue tirzepatide 2.5 mg, no increase otherwise.Starting to have a discussion about proper taper 02/04/2024: Weight 126, BMI 22.32. Continuing tirzepatide 2.5 mg every other week. No indication for continuing to increase dose or go weekly at this time based on patient's BMI, this is helping her maintain did discuss that it may be hindering her success and ability to gain muscle but she would like to continue with medication at this time. Muscle mass 33 pounds. If patient continues to lose muscle we will discontinue GLP-1 altogether secondary to sarcopenia. Patient is going to continue to be consistent with resistance training, but try to increase the weights that she is lifting. Body scan reviewed today. Following up in 6 weeks for repeat body scan. Tirzepatide 2.5 every other week in the meantime 04/23/24: Weight 121, BMI 21.56. Taking tirzepatide 2.5 mg every other week. Will cut down to every 3 weeks. Patient did lose weight, lost fat, and gained muscle still below average for muscle mass, but eating higher protein, and Increasing muscle mass. Follow-up in 2 months.At that time we will discontinue all weight loss medications and see how patient does with lifestyle alone. #Hypertension, patient is following with her PCP as well as [facility] in regards to this. She is not on any medications for her blood pressure and is resistant to being on medications in regards to this. I did educate her extensively on her blood pressure and risk that come across with this and that weight loss while beneficial, might not help her blood pressure entirely. Patient verbalized understanding. Time spent with patient 30 minutes or greater than 50% on patient case and care coordination Patient follow-up in 8 weeks, sooner as needed. All quetsions answered to patients satisfaction. Patient verbalized understanding of diagnosis and treatments explained. To call sooner prior to next visit it any questions/concerns arise. Case discussed with collaborating physician Jeronimo Leone who reviewed the assessment and plan. Chart, medications, labs, vital signs reviewed. Dictation was accomplished with the use of [employer] voice recognition software, prone to medical misidentifications and grammatical errors. This is unintentional and the practitioner does try to identify and correct these, but some could still be present. Please do not hesitate to contact practitioner for clarification. 04/23/2024 Hypertension, essential (ICD-10 - I10) 06/09/2023, 154.87 pound/27.4 BMI patient was welcomed to the practice. Did discuss weight loss options with her. Did review that due to the fact that she is not obese and classified as overweight she might have difficulty getting GLP-1 medications approved by her insurance. She is also not a candidate for phentermine based on her blood pressure and her resistance to taking medications. We will check fasting labs on her for prediabetes and A1c evaluation. Did discuss use of compounded semaglutide as well as Contrave for some effects on her blood pressure. Patient is interested in Contrave. Did discuss side effects of medication and that we can send this to the [facility]. Educated on use of cortisol manager ct and probiotics. Also discussed WINNIE injections. 07/07/23: 156.4 lbs, BMI: 27.7 We will discontinue Contrave. Will initiate 0.25 mg of semaglutide in office. Discussed side effects of constipation and nausea. We will send Zofran for prophylactic use. Educated on not being on this medication with history of pancreatitis and specific thyroid cancer. 07/17/2023, nurse visit for 0.25 mg of compounded semaglutide 07/28/2023, 0.25 mg of compounded semaglutide 08/04/2023, 0.25 mg of semaglutide 08/06/2023, 150.58lbs/26.7BMI Denies any side effects from the compounded semaglutide. Will plan to increase to 0.5 mg next week. 10/01/2023: Weight 137.2, BMI 24.3. Patient graduated an effort, officially within a normal weight of a BMI of 24. Patient is no longer noticing appetite suppression, would like to increase to Wegovy 1 mg. Will increase to Wegovy 1 mg but she is aware will not increase anymore based on patient's BMI. Goal is to eventually taper off of medication and trial lifestyle alone. 11/12/2023: Weight 136.5, BMI 24.18. Patient is lost 1 pound since last visit. Did recently go on vacation. Taking semaglutide 1 mg, but she feels like she is at a plateau. Will switch over to just appetite 2.5 mg. Educated on proper use, and side effects. Educated on long-term use. 12/17/2023: Weight 127.4, BMI 22.57. Patient congratulated on effort, is now within normal limit for BMI. Was switched from semaglutide to tirzepatide. Taking 2.5 milligrams. Patient was interested in increasing to tirzepatide 5 mg, but I advised against this secondary to her weight, and muscle mass. Patient still feels like she has weight to lose, I expressed that she will feel better with gaining muscle, and how that should be her new focus. She understands. Will start increasing resistance training and protein. Continue tirzepatide 2.5 mg, no increase otherwise.Starting to have a discussion about proper taper 02/04/2024: Weight 126, BMI 22.32. Continuing tirzepatide 2.5 mg every other week. No indication for continuing to increase dose or go weekly at this time based on patient's BMI, this is helping her maintain did discuss that it may be hindering her success and ability to gain muscle but she would like to continue with medication at this time. Muscle mass 33 pounds. If patient continues to lose muscle we will discontinue GLP-1 altogether secondary to sarcopenia. Patient is going to continue to be consistent with resistance training, but try to increase the weights that she is lifting. Body scan reviewed today. Following up in 6 weeks for repeat body scan. Tirzepatide 2.5 every other week in the meantime 04/23/24: Weight 121, BMI 21.56. Taking tirzepatide 2.5 mg every other week. Will cut down to every 3 weeks. Patient did lose weight, lost fat, and gained muscle still below average for muscle mass, but eating higher protein, and Increasing muscle mass. Follow-up in 2 months.At that time we will discontinue all weight loss medications and see how patient does with lifestyle alone. #Hypertension, patient is following with her PCP as well as [facility] and [facility] in regards to this. She is not on any medications for her blood pressure and is resistant to being on medications in regards to this. I did educate her extensively on her blood pressure and risk that come across with this and that weight loss while beneficial, might not help her blood pressure entirely. Patient verbalized understanding. Time spent with patient 30 minutes or greater than 50% on patient case and care coordination Patient follow-up in 8 weeks, sooner as needed. All quetsions answered to patients satisfaction. Patient verbalized understanding of diagnosis and treatments explained. To call sooner prior to next visit it any questions/concerns arise. Case discussed with collaborating physician Jeronimo Leone who reviewed the assessment and plan. Chart, medications, labs, vital signs reviewed. Dictation was accomplished with the use of [employer] voice recognition software, prone to medical misidentifications and grammatical errors. This is unintentional and the practitioner does try to identify and correct these, but some could still be present. Please do not hesitate to contact practitioner for clarification. 06/23/2024 BMI 20.0-20.9, adult (ICD-10 - Z68.20) 06/09/2023, 154.87 pound/27.4 BMI patient was welcomed to the practice. Did discuss weight loss options with her. Did review that due to the fact that she is not obese and classified as overweight she might have difficulty getting GLP-1 medications approved by her insurance. She is also not a candidate for phentermine based on her blood pressure and her resistance to taking medications. We will check fasting labs on her for prediabetes and A1c evaluation. Did discuss use of compounded semaglutide as well as Contrave for some effects on her blood pressure. Patient is interested in Contrave. Did discuss side effects of medication and that we can send this to the [facility]. Educated on use of cortisol manager ct and probiotics. Also discussed WINNIE injections. 07/07/23: 156.4 lbs, BMI: 27.7 We will discontinue Contrave. Will initiate 0.25 mg of semaglutide in office. Discussed side effects of constipation and nausea. We will send Zofran for prophylactic use. Educated on not being on this medication with history of pancreatitis and specific thyroid cancer. 07/17/2023, nurse visit for 0.25 mg of compounded semaglutide 07/28/2023, 0.25 mg of compounded semaglutide 08/04/2023, 0.25 mg of semaglutide 08/06/2023, 150.58lbs/26.7BMI Denies any side effects from the compounded semaglutide. Will plan to increase to 0.5 mg next week. 10/01/2023: Weight 137.2, BMI 24.3. Patient graduated an effort, officially within a normal weight of a BMI of 24. Patient is no longer noticing appetite suppression, would like to increase to Wegovy 1 mg. Will increase to Wegovy 1 mg but she is aware will not increase anymore based on patient's BMI. Goal is to eventually taper off of medication and trial lifestyle alone. 11/12/2023: Weight 136.5, BMI 24.18. Patient is lost 1 pound since last visit. Did recently go on vacation. Taking semaglutide 1 mg, but she feels like she is at a plateau. Will switch over to just appetite 2.5 mg. Educated on proper use, and side effects. Educated on long-term use. 12/17/2023: Weight 127.4, BMI 22.57. Patient congratulated on effort, is now within normal limit for BMI. Was switched from semaglutide to tirzepatide. Taking 2.5 milligrams. Patient was interested in increasing to tirzepatide 5 mg, but I advised against this secondary to her weight, and muscle mass. Patient still feels like she has weight to lose, I expressed that she will feel better with gaining muscle, and how that should be her new focus. She understands. Will start increasing resistance training and protein. Continue tirzepatide 2.5 mg, no increase otherwise.Starting to have a discussion about proper taper 02/04/2024: Weight 126, BMI 22.32. Continuing tirzepatide 2.5 mg every other week. No indication for continuing to increase dose or go weekly at this time based on patient's BMI, this is helping her maintain did discuss that it may be hindering her success and ability to gain muscle but she would like to continue with medication at this time. Muscle mass 33 pounds. If patient continues to lose muscle we will discontinue GLP-1 altogether secondary to sarcopenia. Patient is going to continue to be consistent with resistance training, but try to increase the weights that she is lifting. Body scan reviewed today. Following up in 6 weeks for repeat body scan. Tirzepatide 2.5 every other week in the meantime 04/23/24: Weight 121, BMI 21.56. Taking tirzepatide 2.5 mg every other week. Will cut down to every 3 weeks. Patient did lose weight, lost fat, and gained muscle still below average for muscle mass, but eating higher protein, and Increasing muscle mass. Follow-up in 2 months.At that time we will discontinue all weight loss medications and see how patient does with lifestyle alone. 06/23/2024: Weight 115, BMI 20.4. Patient has had success on the weight loss journey, but is now below average and muscle mass. Taking tirzepatide every 3 weeks, for which we are discontinuing altogether. She will follow-up in September for repeat body scan. In the meantime, goal is to increase muscle mass with resistance training as she is not very consistent with that.Patient does state that the tirzepatide has been helping with her anxiety, for which I urged her to follow-up with her PCP for treatment. #Hypertension, Blood pressure stable with the weight loss. Time spent with patient 30 minutes or greater than 50% on patient case and care coordination Follow-up in September for repeat body scan, no longer on any weight loss medication. All quetsions answered to patients satisfaction. Patient verbalized understanding of diagnosis and treatments explained. To call sooner prior to next visit it any questions/concerns arise. Case discussed with collaborating physician Jeronimo Leone who reviewed the assessment and plan. Chart, medications, labs, vital signs reviewed. Dictation was accomplished with the use of [employer] voice recognition software, prone to medical misidentifications and grammatical errors. This is unintentional and the practitioner does try to identify and correct these, but some could still be present. Please do not hesitate to contact practitioner for clarification. 06/23/2024 Hypertension, essential (ICD-10 - I10) 06/09/2023, 154.87 pound/27.4 BMI patient was welcomed to the practice. Did discuss weight loss options with her. Did review that due to the fact that she is not obese and classified as overweight she might have difficulty getting GLP-1 medications approved by her insurance. She is also not a candidate for phentermine based on her blood pressure and her resistance to taking medications. We will check fasting labs on her for prediabetes and A1c evaluation. Did discuss use of compounded semaglutide as well as Contrave for some effects on her blood pressure. Patient is interested in Contrave. Did discuss side effects of medication and that we can send this to the [facility]. Educated on use of cortisol manager ct and probiotics. Also discussed WINNIE injections. 07/07/23: 156.4 lbs, BMI: 27.7 We will discontinue Contrave. Will initiate 0.25 mg of semaglutide in office. Discussed side effects of constipation and nausea. We will send Zofran for prophylactic use. Educated on not being on this medication with history of pancreatitis and specific thyroid cancer. 07/17/2023, nurse visit for 0.25 mg of compounded semaglutide 07/28/2023, 0.25 mg of compounded semaglutide 08/04/2023, 0.25 mg of semaglutide 08/06/2023, 150.58lbs/26.7BMI Denies any side effects from the compounded semaglutide. Will plan to increase to 0.5 mg next week. 10/01/2023: Weight 137.2, BMI 24.3. Patient graduated an effort, officially within a normal weight of a BMI of 24. Patient is no longer noticing appetite suppression, would like to increase to Wegovy 1 mg. Will increase to Wegovy 1 mg but she is aware will not increase anymore based on patient's BMI. Goal is to eventually taper off of medication and trial lifestyle alone. 11/12/2023: Weight 136.5, BMI 24.18. Patient is lost 1 pound since last visit. Did recently go on vacation. Taking semaglutide 1 mg, but she feels like she is at a plateau. Will switch over to just appetite 2.5 mg. Educated on proper use, and side effects. Educated on long-term use. 12/17/2023: Weight 127.4, BMI 22.57. Patient congratulated on effort, is now within normal limit for BMI. Was switched from semaglutide to tirzepatide. Taking 2.5 milligrams. Patient was interested in increasing to tirzepatide 5 mg, but I advised against this secondary to her weight, and muscle mass. Patient still feels like she has weight to lose, I expressed that she will feel better with gaining muscle, and how that should be her new focus. She understands. Will start increasing resistance training and protein. Continue tirzepatide 2.5 mg, no increase otherwise.Starting to have a discussion about proper taper 02/04/2024: Weight 126, BMI 22.32. Continuing tirzepatide 2.5 mg every other week. No indication for continuing to increase dose or go weekly at this time based on patient's BMI, this is helping her maintain did discuss that it may be hindering her success and ability to gain muscle but she would like to continue with medication at this time. Muscle mass 33 pounds. If patient continues to lose muscle we will discontinue GLP-1 altogether secondary to sarcopenia. Patient is going to continue to be consistent with resistance training, but try to increase the weights that she is lifting. Body scan reviewed today. Following up in 6 weeks for repeat body scan. Tirzepatide 2.5 every other week in the meantime 04/23/24: Weight 121, BMI 21.56. Taking tirzepatide 2.5 mg every other week. Will cut down to every 3 weeks. Patient did lose weight, lost fat, and gained muscle still below average for muscle mass, but eating higher protein, and Increasing muscle mass. Follow-up in 2 months.At that time we will discontinue all weight loss medications and see how patient does with lifestyle alone. 06/23/2024: Weight 115, BMI 20.4. Patient has had success on the weight loss journey, but is now below average and muscle mass. Taking tirzepatide every 3 weeks, for which we are discontinuing altogether. She will follow-up in September for repeat body scan. In the meantime, goal is to increase muscle mass with resistance training as she is not very consistent with that.Patient does state that the tirzepatide has been helping with her anxiety, for which I urged her to follow-up with her PCP for treatment. #Hypertension, Blood pressure stable with the weight loss. Time spent with patient 30 minutes or greater than 50% on patient case and care coordination Follow-up in September for repeat body scan, no longer on any weight loss medication. All quetsions answered to patients satisfaction. Patient verbalized understanding of diagnosis and treatments explained. To call sooner prior to next visit it any questions/concerns arise. Case discussed with collaborating physician Jeronimo Leone who reviewed the assessment and plan. Chart, medications, labs, vital signs reviewed. Dictation was accomplished with the use of [employer] voice recognition software, prone to medical misidentifications and grammatical errors. This is unintentional and the practitioner does try to identify and correct these, but some could still be present. Please do not hesitate to contact practitioner for clarification. 02/04/2024 BMI 22.0-22.9, adult (ICD-10 - Z68.22) 06/09/2023, 154.87 pound/27.4 BMI patient was welcomed to the practice. Did discuss weight loss options with her. Did review that due to the fact that she is not obese and classified as overweight she might have difficulty getting GLP-1 medications approved by her insurance. She is also not a candidate for phentermine based on her blood pressure and her resistance to taking medications. We will check fasting labs on her for prediabetes and A1c evaluation. Did discuss use of compounded semaglutide as well as Contrave for some effects on her blood pressure. Patient is interested in Contrave. Did discuss side effects of medication and that we can send this to the [facility]. Educated on use of cortisol manager ct and probiotics. Also discussed WINNIE injections. 07/07/23: 156.4 lbs, BMI: 27.7 We will discontinue Contrave. Will initiate 0.25 mg of semaglutide in office. Discussed side effects of constipation and nausea. We will send Zofran for prophylactic use. Educated on not being on this medication with history of pancreatitis and specific thyroid cancer. 07/17/2023, nurse visit for 0.25 mg of compounded semaglutide 07/28/2023, 0.25 mg of compounded semaglutide 08/04/2023, 0.25 mg of semaglutide 08/06/2023, 150.58lbs/26.7BMI Denies any side effects from the compounded semaglutide. Will plan to increase to 0.5 mg next week. 10/01/2023: Weight 137.2, BMI 24.3. Patient graduated an effort, officially within a normal weight of a BMI of 24. Patient is no longer noticing appetite suppression, would like to increase to Wegovy 1 mg. Will increase to Wegovy 1 mg but she is aware will not increase anymore based on patient's BMI. Goal is to eventually taper off of medication and trial lifestyle alone. 11/12/2023: Weight 136.5, BMI 24.18. Patient is lost 1 pound since last visit. Did recently go on vacation. Taking semaglutide 1 mg, but she feels like she is at a plateau. Will switch over to just appetite 2.5 mg. Educated on proper use, and side effects. Educated on long-term use. 12/17/2023: Weight 127.4, BMI 22.57. Patient congratulated on effort, is now within normal limit for BMI. Was switched from semaglutide to tirzepatide. Taking 2.5 milligrams. Patient was interested in increasing to tirzepatide 5 mg, but I advised against this secondary to her weight, and muscle mass. Patient still feels like she has weight to lose, I expressed that she will feel better with gaining muscle, and how that should be her new focus. She understands. Will start increasing resistance training and protein. Continue tirzepatide 2.5 mg, no increase otherwise.Starting to have a discussion about proper taper 02/04/2024: Weight 126, BMI 22.32. Continuing tirzepatide 2.5 mg every other week. No indication for continuing to increase dose or go weekly at this time based on patient's BMI, this is helping her maintain did discuss that it may be hindering her success and ability to gain muscle but she would like to continue with medication at this time. Muscle mass 33 pounds. If patient continues to lose muscle we will discontinue GLP-1 altogether secondary to sarcopenia. Patient is going to continue to be consistent with resistance training, but try to increase the weights that she is lifting. Body scan reviewed today. Following up in 6 weeks for repeat body scan. Tirzepatide 2.5 every other week in the meantime #Hypertension, patient is following with her PCP as well as [facility] and [facility] in regards to this. She is not on any medications for her blood pressure and is resistant to being on medications in regards to this. I did educate her extensively on her blood pressure and risk that come across with this and that weight loss while beneficial, might not help her blood pressure entirely. Patient verbalized understanding. Time spent with patient 30 minutes or greater than 50% on patient case and care coordination Patient follow-up in 4 to 6 weeks, sooner as needed. All quetsions answered to patients satisfaction. Patient verbalized understanding of diagnosis and treatments explained. To call sooner prior to next visit it any questions/concerns arise. Case discussed with collaborating physician Jeronimo Leone who reviewed the assessment and plan. Chart, medications, labs, vital signs reviewed. Dictation was accomplished with the use of [employer] voice recognition software, prone to medical misidentifications and grammatical errors. This is unintentional and the practitioner does try to identify and correct these, but some could still be present. Please do not hesitate to contact practitioner for clarification. 11/12/2023 Hypertension, essential (ICD-10 - I10) 06/09/2023, 154.87 pound/27.4 BMI patient was welcomed to the practice. Did discuss weight loss options with her. Did review that due to the fact that she is not obese and classified as overweight she might have difficulty getting GLP-1 medications approved by her insurance. She is also not a candidate for phentermine based on her blood pressure and her resistance to taking medications. We will check fasting labs on her for prediabetes and A1c evaluation. Did discuss use of compounded semaglutide as well as Contrave for some effects on her blood pressure. Patient is interested in Contrave. Did discuss side effects of medication and that we can send this to the [facility]. Educated on use of cortisol manager ct and probiotics. Also discussed WINNIE injections. 07/07/23: 156.4 lbs, BMI: 27.7 We will discontinue Contrave. Will initiate 0.25 mg of semaglutide in office. Discussed side effects of constipation and nausea. We will send Zofran for prophylactic use. Educated on not being on this medication with history of pancreatitis and specific thyroid cancer. 07/17/2023, nurse visit for 0.25 mg of compounded semaglutide 07/28/2023, 0.25 mg of compounded semaglutide 08/04/2023, 0.25 mg of semaglutide 08/06/2023, 150.58lbs/26.7BMI Denies any side effects from the compounded semaglutide. Will plan to increase to 0.5 mg next week. 10/01/2023: Weight 137.2, BMI 24.3. Patient graduated an effort, officially within a normal weight of a BMI of 24. Patient is no longer noticing appetite suppression, would like to increase to Wegovy 1 mg. Will increase to Wegovy 1 mg but she is aware will not increase anymore based on patient's BMI. Goal is to eventually taper off of medication and trial lifestyle alone. 11/12/2023: Weight 136.5, BMI 24.18. Patient is lost 1 pound since last visit. Did recently go on vacation. Taking semaglutide 1 mg, but she feels like she is at a plateau. Will switch over to just appetite 2.5 mg. Educated on proper use, and side effects. Educated on long-term use. #Hypertension, patient is following with her PCP as well as [facility] in regards to this. She is not on any medications for her blood pressure and is resistant to being on medications in regards to this. I did educate her extensively on her blood pressure and risk that come across with this and that weight loss while beneficial, might not help her blood pressure entirely. Patient verbalized understanding. Time spent with patient 30 minutes or greater than 50% on patient case and care coordination Patient follow-up in 4 weeks, sooner as needed. All quetsions answered to patients satisfaction. Patient verbalized understanding of diagnosis and treatments explained. To call sooner prior to next visit it any questions/concerns arise. Case discussed with collaborating physician Jeronimo Leone who reviewed the assessment and plan. Chart, medications, labs, vital signs reviewed. Dictation was accomplished with the use of [employer] voice recognition software, prone to medical misidentifications and grammatical errors. This is unintentional and the practitioner does try to identify and correct these, but some could still be present. Please do not hesitate to contact practitioner for clarification. PLAN OF TREATMENT Pending Test Test Name Order Date LIPID PANEL, STANDARD 06/09/2023 HEMOGLOBIN A1c 06/09/2023 INSULIN 06/09/2023 Next Appt Details Provider Name:MIKE KEY, Main 09/29/2024 11:00:00 AM, [address], [place], [address], Insurance Providers Payer Name Payer Address Payer Phone Subscriber Number Group Number Insured Name Patient Relationship to Insured Coverage Start Date Coverage End Date [facility] [address] [place] [address] [phone] [id number] 2 Maddison Jiménez Self - patient is the insured MEDICATIONS ADMINISTERED Medication Instructions Date of Administration Dosage Notes MICC B12 INJECTION 10/01/2023 1.0 mg Semaglutide 07/07/2023 0.25 Semaglutide 07/17/2023 0.25 mg LLQ SQ Semaglutide 07/28/2023 0.25 mg LLQ SQ Semaglutide 08/04/2023 0.25 mg lot#[id number] 0.25mg Semaglutide 08/15/2023 0.5 mg Semaglutide 08/21/2023 0.5 mg Semaglutide 08/28/2023 0.5 Semaglutide 09/03/2023 0.5 mg Semaglutide 09/13/2023 0.5 mg Semaglutide 09/19/2023 0.5 mg Semaglutide 09/27/2023 0.5 mg Semaglutide 10/01/2023 1.0 mg Semaglutide 10/09/2023 1 mg Semaglutide 10/16/2023 1.0 mg LLQ SQ Semaglutide 10/24/2023 1 mg Tirzepatide 11/12/2023 2.5 mg Tirzepatide 11/19/2023 2.5 mg Tirzepatide 11/27/2023 2.5 mg Tirzepatide 12/05/2023 2.5 mg Tirzepatide 12/11/2023 2.5 mg Tirzepatide 12/17/2023 2.5 mg Tirzepatide 01/02/2024 2.5 mg Tirzepatide 01/16/2024 2.5 mg Tirzepatide 01/23/2024 2.5 mg Tirzepatide 02/04/2024 2.5 mg LRQ SQ Tirzepatide 03/04/2024 2.5 mg Tirzepatide 03/18/2024 2.5 Tirzepatide 04/01/2024 2.5 mg Tirzepatide 04/15/2024 2.5 mg Tirzepatide 05/06/2024 2.5 Tirzepatide 05/27/2024 2.5 mg Tirzepatide 06/17/2024 2.5 mg MEDICAL (GENERAL) HISTORY Medical History History ICD Code HTN seasonal allergies weight change Surgical History Surgery Date(Month/Year) gallbladder May 2019
[2024-08-15 15:59] LABS: MANUAL DIFF FLAG NO
[2024-08-15 17:11] LABS: Basophils Percent Auto 0.3 % (0-2); Eosinophils Absolute Auto 0.1 X10*3/uL (0.0-0.4); Eosinophils Percent Auto 0.9 % (0-4); Hematocrit 41.1 % (37.0-47.0); Hemoglobin 14.1 g/dl (12.0-16.0); Imm Gran Abs Auto 0.03 X10*3/uL (0.00-0.03); Imm Gran Pct Auto 0.3 % (0.0-0.4); Lymphocytes Absolute Auto 1.9 X10*3/uL (1.2-4.9); Mean Corpuscular HGB Conc 34.3 g/dl (31.0-35.0); Mean Corpuscular Hemoglobin 31.3 pg (27.0-33.0); Mean Corpuscular Volume 91.1 fL (80.0-98.0); Monocytes Absolute Auto 0.8 X10*3/uL (0.1-1.2); Monocytes Percent Auto 8.4 % (2-11); Neutrophils Absolute Auto 6.3 x10*3/uL (2.0-8.3); Neutrophils Percent Auto 69.1 % (45-73); Platelet Count 282 X10*3/uL (160-400); Red Blood Count 4.51 X10*6/uL (4.20-5.50); Red Cell Distribution Width 12.5 % (11.0-16.0); White Blood Count 9.1 X10*3/uL (4.8-10.8)
[2024-08-15 17:38] LABS: Alanine Aminotransferase 33 U/L (0-31); Albumin Level 4.3 g/dL (3.5-5.0); Alkaline Phosphatase 57 U/L (39-117); Anion Gap 14 (12-20); Aspartate Amino Transferase 25 U/L (5-31); Bilirubin Total 0.4 mg/dL (0.0-1.0); Blood Urea Nitrogen 14 mg/dL (9-16); C Reactive Protein 0.43 mg/dL (< or = 0.50); Carbon Dioxide 30 mmol/L (22-29); Chloride 100 mmol/L (96-108); Estimated Glomerular Filt Rate > 60; Glucose Random 109 mg/dL (60-115); Magnesium 2.5 mg/dL (1.6-2.6); Potassium 4.2 mmol/L (3.3-5.1); Sodium 140 mmol/L (135-145); Total Protein 6.8 g/dL (6.5-8.0)
[2024-08-15 17:53] LABS: TSH reflex Free T4 0.83 uIU/mL (0.32-4.0)
== END 2024-08-15 15:28 | disposition home or self-care (01) ==
LOC: HO.XRAY 15:27
PROVIDERS: PCP Internal Medicine; Visit Provider Internal Medicine Gastroenterology
DX: K59.00 Constipation, unspecified (principal); K75.81 Nonalcoholic steatohepatitis (NASH)
CPT/HCPCS: 36415; 74018; 80053; 83735; 84443; 85025; 86140

== ENCOUNTER → 2024-08-15 15:31 | Outpatient (BNV) | payer BC, SELFPAY | PROVIDERS: PCP Internal Medicine; Visit Provider Radiology Diagnostic Radiology | DX: K59.00 Constipation, unspecified (principal) | CPT/HCPCS: 74018 ==

== ENCOUNTER 2024-12-02 07:28 | Day surgery (SDC) | payer BC, SELFPAY ==
[2024-11-28 12:59] VITALS: BMI 25.3
--- NOTE | 2024-12-01 15:00 | P.CONAN_ITS ---
HPI - Anesthesia Eval Consult details Narrative: 54 yo female patient for EGD, Colonoscopy PMF Active Problems Active Problems: All Active Problems Constipation (Acute) Bilateral foot pain (Acute) Bilateral hand pain (Acute) Bilateral elbow joint pain (Acute) Knee pain, bilateral (Acute) Past Medical History Medical History Hyperlipidemia Pain in right hip Anxiety HTN (hypertension) Nausea Anomaly, uterus Joint pain Family History Family history of problems with anesthesia: No Surgical History Surgical History (Updated 12/02/24 @ 09:40 by Amanda Colon MD) History of esophagogastroduodenoscopy (EGD) History of loop electrical excision procedure (LEEP) Hx of tubal ligation H/O shoulder surgery H/O knee surgery Hx of cholecystectomy Hx of section History of Problems with Anesthesia: No Social History Social History Alcohol intake: never Patient Tobacco Use Status: Never used Tobacco e-Cigarette/Vaping Use: Never Used Use of substances other than those prescribed or required for medical reasons: No Are you DNR?: No Advance Directives: No Advance Directives Information Provided: Yes service: No Current occupational status: employed Current occupation: RESPIRATORY THERAPIST Meds Allergies Allergy/AdvReac Type Severity Reaction Status Date / Time No Known Allergies Allergy Verified 12/02/24 08:10 [No Known Allergies*] Home Medications ?Medication ?Instructions ?Recorded ?Confirmed ?Last Taken ?Type ondansetron HCl 4 mg tablet 4 mg PO Q8H PRN Nausea 11/28/24 11/28/24 Unknown History Exam Height,Weight and Vital Signs: Height 5 ft 3 in Weight 64.864 kg Vital Signs Temp Pulse Resp BP Pulse Ox O2 Del Method 12/02/24 08:21 100.1 F 73 16 136/72 98 Room Air Airway Mallampati Class: III (Small mouth opening ) TM Dist: >3cm Neck ROM: Full Loose/Missing/Broken Teeth: Yes (Missing wisdom teeth. Denies broken or loose teeth) Heart: RRR Lungs: CTAB Assessment and Plan Assessment Anesthesia Assessment: Anesthesia Plan Discussed and Chart Reviewed Final Anesthetic Review Family History of Problems with Anesthesia: No History of Problems with Anesthesia: No NPO: Yes ASA Class: II Final Preanesthetic Review: No Changes in Pt Med Stat, Meds/Allgs Chart Revi ewed, Consent Obtained/Reviewed and Anes Risks/Benef Reviewed Patient Risk: Low Procedure Risk: Low Assessment/Block/Sedation in SS: Assess/Block/Sedation-SS Anesthetic Plan Anesthetic Plan: TIVA Disposition: Standard PACU
[2024-12-02 08:13] VITALS: BMI 19.0
[2024-12-02 08:21] VITALS: BP 136/72; PULSE 73; RESP 16; TEMP 37.8; O2SAT 98
--- NOTE | 2024-12-02 08:28 | MHC.SHP ---
Pre-Procedural Eval Section A - 24 Hr Update-Section A only Date of Service: 12/02/24 Section B - Complete if H&P > 30 days Chief Complaint: Chronic idiopathic constipation Relevant Family History (Specify if Yes): No Relevant Social History: None Present Medications: see Short Stay Collaborative assessment Medical History: Significant History ( Hyperlipidemia Pain in right hip Anxiety HTN (hypertension) Nausea Anomaly, uterus Joint pain) History of Previous Operations: Relevant previous surgery/procedure and date(s) (History of loop electrical excision procedure (LEEP) Hx of tubal ligation H/O shoulder surgery H/O knee surgery Hx of cholecystectomy Hx of section) Allergies: Allergies Allergy/AdvReac Type Severity Reaction Status Date / Time No Known Allergies Allergy Verified 12/02/24 08:10 [No Known Allergies*] Review of Systems Sugical H&P ROS: Negative: Constitution, Cardiovascular, Respiratory, Neurological, Psychiatric, Hem-Onc, Allergic/Immunologic, Gastrointestinal, Genitourinary, Musculoskeletal, Integumentary, Endocrine and Eyes/Ears/Nose/Throat Exam Surgical H&P Exam: Normal: HEENT, Normal: Heart, Normal: Lungs, Normal: Extremities, Normal: Abdomen, Normal: Skin and Normal: Neurological Plan Diagnosis/Plan: Unchanged I have reviewed the history and physical and performed a pertinent physical examination on my patient. No changes have occurred unless specified. Time Spent With Patient Time: Total time managing care of this patient today ____ minutes.
--- NOTE | 2024-12-02 08:54 | HO.OPN-COLON ---
Colonoscopy Operative Note Operative Note Date of Service: 12/02/24 Narrative: Operative Information Procedure Description: EGD, Colonoscopy Indication: GERD, dysphagia, screening colo Anesthesia: MAC FLEXIBLE TRANSORAL UPPER GASTROINTESTINAL ENDOSCOPY AND COLONOSCOPY PROCEDURE NOTE UPPER ENDOSCOPY Consent: Indications for the procedure and potential complications of bleeding, perforation, reaction to medications and missed diagnosis were discussed with the patient and informed consent was obtained. Instrument: Olympus GIF H 190 J mid size upper endoscope Monitoring: Vital signs and clinical assessment, continuous EKG monitoring, Pulse oximetry, Carbon Dioxide monitoring and blood pressure monitoring were done throughout the procedure. Procedure: The patient was placed in the left lateral decubitis position and pre-procedure medications were administered and a bite block was placed. The endoscope was inserted into the mouth and advanced under direct vision to the third part of duodenum. A careful inspection was made as the upper endoscope was withdrawn including a retroflexed examination of the proximal stomach; Findings and interventions are described below. Findings: Larynx:normal Esophagus: GE junction at 40 cm, diaphragm hiatus at 40 cm, mild erythema at GEJ, bx taken as well as from distal and proximal esophagus --balloon dilation done at LES and UES to 19 mm, no tear seen Stomach: streaky gastritis in antrum. Biopsies were obtained. Grade 2 flap valve on retroflexed examination of the cardia. Duodenum: Normal bulb and descending duodenum, bx taken Intervention: Biopsies as noted above, balloon dilation COLONOSCOPY Instrument: Olympus variable stiffness pediatric scope 190L Colonoscopy Monitoring: Vital signs and clinical assessment, continuous EKG monitoring, Pulse oximetry, Carbon Dioxide monitoring and blood pressure monitoring were done throughout the procedure. Colon withdrawal time was 12 minutes. Procedure: The patient was placed in the left lateral decubitis position and pre-procedure medications were administered. After a digital rectal examination of the ano-rectum, the video colonoscope was inserted into the rectum and advanced through the colon to the cecum/TI. The colonoscope was slowly withdrawn in a retrograde panoramic fashion and the colon mucosa was carefully examined including a retroflexed view of the rectum. Findings and interventions are described below. Procedure Difficulty:moderate--tortuous colon Findings: Terminal Ileum-normal Cecum:normal right sided retroflexion- normal Ascending Colon: normal Transverse Colon -normal Descending Colon:normal Sigmoid Colon: 6-8 mm sessile polyp removed with cold snare Rectum: Retroflexion with small internal hemorrhoids, grade I Anorectum - normal Colon preparation: [place] Bowel Preparation Scale Right colon; 1-2 Transverse colon: 2 Left colon; 2 (0 = Unprepared colon segment with mucosa not seen due to solid stool that cannot be cleared. 1 = Portion of mucosa of the colon segment seen, but other areas of the colon segment not well seen due to staining, residual stool and/or opaque liquid. 2 = Minor amount of residual staining, small fragments of stool and/or opaque liquid, but mucosa of colon segment seen well. 3 = Entire mucosa of colon segment seen well with no residual staining, small fragments of stool or opaque liquid) Impression and Post Procedure Diagnosis: Endoscopy Findings: gastritis mild esophagitis Colonoscopy Findings: tortuous colon colon polyp internal hemorrhoids Plan: Await Pathology results Repeat Colonoscopy in 5 years due to some areas of fair prep on right or earlier if clinically indicated High fiber diet leaflet avoid straining at stool, epsom salts and sitz bath, anusol supps or cream consider PPI trial if not taking Above findings were reviewed with the patient and relevant handouts were provided if indicated.
[2024-12-02 09:58] VITALS: BP 105/62; PULSE 88; RESP 20; TEMP 36.3; O2SAT 97
[2024-12-02 10:10] VITALS: BP 118/81; PULSE 89; RESP 19; O2SAT 97
[2024-12-02 10:25] VITALS: BP 124/76; PULSE 86; RESP 19; O2SAT 97
[2024-12-02 10:33] VITALS: BP 127/79; PULSE 74; RESP 19; TEMP 36.5; O2SAT 97
== END 2024-12-02 11:13 | disposition home or self-care (01) ==
PROVIDERS: PCP Internal Medicine; Visit Provider Internal Medicine Gastroenterology
PROC: 0DJD8ZZ Inspection of Lower Intestinal Tract, Via Natural or Artificial Opening Endoscopic (ICD-10-PCS; CPT 45378; principal; 2024-12-02 09:20)
DX: Z12.11 Encounter for screening for malignant neoplasm of colon (principal); D12.5 Benign neoplasm of sigmoid colon; K64.0 First degree hemorrhoids; K59.04 Chronic idiopathic constipation; R13.10 Dysphagia, unspecified; K21.9 Gastro-esophageal reflux disease without esophagitis; K20.80 Other esophagitis without bleeding; K29.50 Unspecified chronic gastritis without bleeding; K44.9 Diaphragmatic hernia without obstruction or gangrene; I10 Essential (primary) hypertension; E78.5 Hyperlipidemia, unspecified; M25.551 Pain in right hip; Q51.9 Congenital malformation of uterus and cervix, unspecified; F41.9 Anxiety disorder, unspecified; Z98.890 Other specified postprocedural states; Z79.899 Other long term (current) drug therapy
CPT/HCPCS: 45385; 43249; 43239; 88305; 88313; 88342; C1726; J1596; J2003; J2250; J2405; J2704

== ENCOUNTER → 2024-12-02 07:28 | Outpatient (BNV) | payer BC, SELFPAY | PROVIDERS: PCP Internal Medicine; Visit Provider Internal Medicine Gastroenterology | DX: Z12.11 Encounter for screening for malignant neoplasm of colon (principal); D12.5 Benign neoplasm of sigmoid colon; K59.04 Chronic idiopathic constipation; K64.0 First degree hemorrhoids; K21.00 Gastro-esophageal reflux disease with esophagitis, without bleeding; R13.10 Dysphagia, unspecified; K29.70 Gastritis, unspecified, without bleeding | CPT/HCPCS: 43239; 43249; 45385 ==